=== PATIENT | female | born 1980 ===

== ENCOUNTER 2019-01-23 07:54 | Outpatient (CLI) | payer OTHER | END 2019-01-23 08:00 | disposition home or self-care (01) | LOC: RAD 07:54 | DX: Z01.811 Encounter for preprocedural respiratory examination (principal) ==

== ENCOUNTER 2019-01-23 08:16 | Outpatient (CLI) | payer OTHER | END 2019-01-23 08:36 | disposition home or self-care (01) | LOC: LAB 08:16 | DX: D68.8 Other specified coagulation defects (principal); N83.209 Unspecified ovarian cyst, unspecified side; D50.8 Other iron deficiency anemias; E83.51 Hypocalcemia; E03.8 Other specified hypothyroidism; N39.0 Urinary tract infection, site not specified; Z32.00 Encounter for pregnancy test, result unknown ==

== ENCOUNTER 2019-02-04 15:11 | Inpatient (IN) | payer OTHER ==
[~2019-02-04] VITALS: Ht 162.6 cm; Wt 93.4 kg
[2019-02-09] MEDS ORDERED: NAPROXEN500 MG PO (07:58)
== END 2019-02-09 10:12 | disposition home or self-care (01) | DRG 743 ==
LOC: O/R 02-07 06:00 → SURH 02-07 09:30 → OB/GYN 02-07 14:57 → SURH 02-07 15:10 → OB/GYN 02-09 10:12
PROVIDERS: ADMIT Specialist
PROC: 0UT70ZZ Resection of Bilateral Fallopian Tubes, Open Approach (ICD-10-PCS; 2019-02-07)
PROC: 0UT00ZZ Resection of Right Ovary, Open Approach (ICD-10-PCS; 2019-02-07)
PROC: 0UT90ZZ Resection of Uterus, Open Approach (ICD-10-PCS; principal; 2019-02-07 09:30)
DX: D25.1 Intramural leiomyoma of uterus (principal); N80.2 Endometriosis of fallopian tube; N80.1 Endometriosis of ovary; N72 Inflammatory disease of cervix uteri